=== PATIENT | female | born 1995 | race Caucasian/White ===

== ENCOUNTER 2022-03-03 19:33 | Emergency (ER) | payer OTHER, SELFPAY ==
[2022-03-03 20:00] VITALS: BP 126/79; PULSE 98; RESP 20; TEMP 37.3; O2SAT 100; BMI 21.9
--- NOTE | 2022-03-03 23:18 | ED_ITS ---
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 There was no loss of consciousness. She is not on blood thinners. She states approximately an hour afterwards she started to develop a headache. She is had some persistent nausea since then and today started have some dizziness when she stood up. Has not taken anything for her symptoms. Was told that if she developed any dizziness that she needed to come to the emergency department for evaluation. She is no numbness or tingling in her upper and lower extremities. No prior history of concussions. Related Data Allergies Allergy/AdvReac Type Severity Reaction Status Date / Time No Known Drug Allergies Allergy Verified 03/03/22 20:07 Review of Systems Constitutional Constitutional: Reports system reviewed and no additional complaints, except as documented Eyes Eyes: Reports system reviewed and no additional complaints, except as documented Respiratory Respiratory: Reports system reviewed and no additional complaints, except as documented Integumentary/Breasts Skin/Breast: Reports system reviewed and no additional complaints, except as documented Neurologic Neurologic: Reports system reviewed and no additional complaints, except as documented Hematologic/Lymphatic On Anticoagulants: No Patient History Social History Smoking Status: Never smoker Smoking Status: Never smoker alcohol intake frequency: 0-2 drinks per day Substance Use Type: does not use Exam Initial Vital Signs Initial Vital Signs: Vital Signs Temperature 99.1 F 03/03/22 20:00 Pulse Rate 98 H 03/03/22 20:00 Respiratory Rate 20 03/03/22 20:00 Blood Pressure 126/79 03/03/22 20:00 Pulse Oximetry 100 03/03/22 20:00 Oxygen Delivery Method 03/03/22 20:00 HENAZ Head: normal to inspection, normocephalic, No contusion, No hematoma, No laceration, No palpable skull fracture and No scalp tenderness Resp Effort & Inspection: normal respiratory effort Auscultation: clear to auscultation bilaterally Cardio Rate: regular rate Rhythm: regular rhythm Skin General: no rashes or lesions noted Neuro General: patient alert, patient awake, patient oriented x3 and moves all extremities Cognition: normal cognition Speech: speech normal Extrem General: capillary refill normal Scores [place] CT Head Rule Age <16 years old: No Patient on blood thinners: No Seizure after injury: No Exclusion: Patient NOT Excluded, Proceed to next steps GCS < 15 at 2 hr post trauma: No Suspected open or depressed skull fracture: No Any sign of basilar skull fracture (hemotympanum, raccoon eyes, Bolden's sign, CSF ray-/rhinorrhea): No Two or more episodes of vomiting: No Age greater or equal to 65 years: No Retrograde amnesia to the event greater or equal to 30 min: No Dangerous Mechanism (pedestrian vs. mv, occupant ejected from mv, fall from >3 ft or > 5 stairs): No Recommendation: CT unnecessary GCS Ripley coma scale eye opening: Spontaneous Ripley coma scale verbal response: Orientated Anu coma scale motor response: Obey commands Ripley coma scale total score: 15 Course Orders Ordered: Discontinued Medications Ondansetron HCl (Ondansetron 4 Mg Odt Prepack) 1 bottle MISC SEEINSTR ONE Stop: 03/03/22 23:20 Vital Signs Vital signs: Vital Signs - 8 hr 03/03/22 20:00 Temperature 99.1 F Pulse Rate 98 H Respiratory Rate 20 Blood Pressure 126/79 Pulse Oximetry 100 Oxygen Delivery Method Room Air MDM - Head Injury MDM Narrative Medical decision making narrative: Low suspicion for subarachnoid hemorrhage or other intracranial bleed and also low suspicion for skull fracture. She is now multiple days after the event. Suspect that she has had a concussion in his now having a postconcussive syndrome. I did discuss this with her. We did discuss the use of medications to try to control the symptoms and the importance of avoiding hitting her head again. She was given return precautions and follow-up instructions. She expressed understanding and agreement. Discharge Plan Departure Patient Disposition: Home Clinical Impression: Closed head injury, Concussion without loss of consciousness Instructions: Concussion Activity Restrictions/Additional Instructions: You can take Tylenol or ibuprofen for any headaches or body aches. I do recommend the use the nausea medication as need his neck as directed. Contact your medical department for follow-up. Return to the emergency department for any new symptoms. Stand Alone Forms: Patient Portal/API
[2022-03-03] MEDS: ONDANSETRON 4 MG ODT PREPACK 1 BOTTLE MISC (23:34)
[2022-03-03 23:40] VITALS: TEMP 36.3
== END 2022-03-03 23:40 | disposition home or self-care (01) ==
PROVIDERS: Emergency Provider Emergency Medicine
DX: S06.0X0A Concussion without loss of consciousness, initial encounter (principal); Y93.23 Activity, snow (alpine) (downhill) skiing, snowboarding, sledding, tobogganing and snow tubing
CPT/HCPCS: 99281